=== PATIENT | female | born 1995 | race Caucasian/White ===

== ENCOUNTER 2019-05-29 13:42 | Emergency (ER) | payer OTHER ==
[~2019-05-29] VITALS: Ht 170.2 cm; Wt 61.2 kg
[2019-05-29 13:53] VITALS: BP 119/102
== END 2019-05-29 14:31 | disposition home or self-care (01) ==
LOC: M.ERS 13:42
DX: F15.10 Other stimulant abuse, uncomplicated (principal); R20.0 Anesthesia of skin; R20.2 Paresthesia of skin